=== PATIENT | female | born 1940 | race Caucasian/White ===

== ENCOUNTER 2016-07-24 10:04 | Inpatient (IN) | payer MEDICARE, MEDICAID ==
[~2016-07-24] VITALS: Ht 165.1 cm; Wt 104.0 kg
[~2016-07-24 10:04] MED LIST: ALLOPURINOL100 MG PO; AMIODARONE200 MG PO; CALCIUM600 M2 PO; CARTIA XT300 MG/24 PO; CEPHALEXIN500 MG PO; CHLORASEPTIC SO1 LOZ PO; CIPROFLOXACN500 MG PO; COMPAZINE5 MG/TAB PO; COUMADIN2 MG PO; COUMADIN2.5 MG PO; COUMADIN4 MG PO; COUMADIN5 MG PO; DUONEB IN; FLEXERIL PO; KEFLEX500 M1 PO; KLOR-CON M2020 MEQ PO; LASIX 20 MG20 MG/TAB PO; LASIX 40 MG TAB40 MG PO; LEVOTHYROXIN50 MCG PO; LISINOPRIL5 MG PO; LOPRESSOR25 M1 PO; MAGNESIUM296 ML/BTL PO; MEDDOSEPAK PO; MET12.5TAB PO; METFORMIN500 MG PO; METOCLOPRAM10 MG PO; METOPROL TAR25 MG PO; MUCINEX600 MG PO; MYLANTA1 ML PO; NORCO1 TA1 PO; PERCOCET 5/325M1 TAB PO; PRAVACHOL20 MG PO; PRAVASTATIN20 MG PO; PREDNISONE20 MG PO; PREDNISONE50 MG PO; PROAIR HFA IN; PROBIOTI1 OR; PROTONIX40 M2 PO; ROBITUSSIN AC10 ML PO; SYMBICORT1 AE1 IN; TAZTIA X1 PO; TRAMADOL HCL50 MG PO; TYLENOL325 MG PO; ULTRAM50 M1 PO; VANTIN100 MG PO; WARFARIN5 MG PO; XALATAN 0.005%2.5 ML OU; XANAX0.25 MG PO; ZPAK PO
--- NOTE | 2016-07-24 10:22 | NUR ---
PT TO ROOM PER W/C
[2016-07-24 11:07] LABS: HEMATOCRIT 43.3 % (37.0-47.0); HEMOGLOBIN 14.1 g/dl (12.0-16.0); IMMATURE GRANULOCYTES 0.4 % (0.0-1.0); MEAN CELL VOLUME 90.8 fL CALC (80.0-100.0); MEAN CORPUSCULAR HGB 29.6 pG CALC (26.0-32.0); MEAN CORPUSCULAR HGB CONC 32.6 g/L CALC (32.0-36.0); NEUT# 7.25 thou/uL (2.00-7.15); RED BLOOD COUNT 4.77 mill/uL (4.20-5.60); RED CELL DISTRI WIDTH 13.9 % (11.5-15.5)
[2016-07-24 11:12] LABS: INTERNATIONAL NORMALIZED RATIO 3.1 RATIO (0.7-1.3); PROTHROMBIN TIME 36.6 SECONDS (9.0-12.5)
[2016-07-24 11:15] LABS: ALBUMIN 3.8 g/dL (3.2-5.0); ALKALINE PHOSPHATASE 87 u/l (38-126); ANION GAP 15 (6-22 (CALC)); BILIRUBIN, TOTAL 0.9 mg/dL (0.0-1.4); BUN 16 mg/dL (8-23); BUN/CREATININE RATIO 18 (12-20 (CALC)); CALCIUM 9.5 mg/dL (8.4-10.2); CARBON DIOXIDE 29 mmol/l (22-30); CHLORIDE 100 mmol/l (95-108); CREATININE 0.9 mg/dL (0.5-1.0); ETHYL ALCOHOL 0 mg/dl (0-30); GFR > 60 ML/MIN (>=60 (CALC)); GFR FOR AFR.AMER. > 60 ML/MIN (>=60 (CALC)); GLUCOSE 158 mg/dL (82-115); SGOT/AST 28 u/l (9-36); SGPT/ALT 42 u/l (11-66); SODIUM 140 mmol/l (137-146); TOTAL PROTEIN 6.5 g/dL (6.3-8.2)
[2016-07-24 11:27] LABS: MYOGLOBIN 44 ng/mL (0 - 62)
--- NOTE | 2016-07-24 11:30 | NUR ---
PATIENT RESTING AWAITING LAB AND RADIOLOGY RESULTS. PATIENT DENIES ANY AIN AT THIS TIME
--- NOTE | 2016-07-24 12:30 | NUR ---
PATIENT RESTING AWAITING LAB AND RADIOLOGY RESULTS. PATIENT DENIES ANY PAIN AT THIS TIME
[2016-07-24 12:31] LABS: URINE BILIRUBIN - DIPSTICK NEGATIVE (NEGATIVE); URINE BLOOD DIPSTICK NEGATIVE (NEGATIVE); URINE COLOR YELLOW; URINE GLUCOSE - DIPSTICK NEGATIVE (NEGATIVE); URINE KETONE NEGATIVE (NEGATIVE); URINE LEUK ESTERASE TRACE (NEGATIVE); URINE PH 5.5 (4.5-8.0); URINE PROTEIN - DIPSTICK NEGATIVE (NEG-TRACE); URINE UROBILINOGEN - DIPSTICK 0.2 E.U./dL (0.2)
[2016-07-24 12:33] LABS: URINE CLARITY HAZY; URINE NITRITE - DIPSTICK POSITIVE (Negative)
[2016-07-24 12:34] LABS: URINE BACTERIA MANY hpf; URINE EPITHELIAL CELLS FEW EPI/hpf (0-FEW)
--- NOTE | 2016-07-24 13:30 | NUR ---
PATIENT RESTING AWAITING RESULTS FROM MD PATIENT DENIES ANY PAIN AT THIS TIME
--- NOTE | 2016-07-24 14:51 | NUR ---
PATIENT RESTING AWAITING ROOM ASSIGNMENT DENIES ANY PAIN AT THIS TIME
--- NOTE | 2016-07-24 14:57 | NUR ---
REPORT CALLED TO THE FLOOR AND PATIENT TRANSPORTED
--- NOTE | 2016-07-24 15:01 | NUR ---
PATIENT DOES NOT REMEMBER HER MEDICATIONS THAT SHE TAKES OR WHEN SHE LAST TOOK HER MEDICATIONS
--- NOTE | 2016-07-24 15:05 | NUR ---
PT ARRIVED TO FLOOR AT THIS TIME ACCOMPANIED BY AURE GILMAN; PT AMB TO SCALE AND BATHROOM WITH STEADY GAIT NOTED; PT ORIENTED TO ROOM AND CALL LIGHT SYSTEM; ASSESSMENT COMPLETED AT THIS TIME; VSS; PT DENIES ANY NEEDS AT THIS TIME; TELE IN PLACE; FALL PRECAUTIONS IN PLACE; PT ENCOURAGED TO CALL FOR ANY ASSISTANCE NEEDED; CALL LIGHT WITHIN REACH; WILL CONTINUE TO MONITOR
[2016-07-24 15:10] VITALS: BP 124/59
--- NOTE | 2016-07-24 17:30 | NUR ---
PT RESTING IN BED; NO S/S OF DISTRESS NOTED; IVF INFUSING AT PRESCRIBED RATE; PT MEDICATED WITH SCHEDULED ULTRAM; PT C/O PAIN IN LOWER EXTREMITIES AND HEAD; PT DENIES ANY OTHER NEEDS AT THIS TIME; CALL LIGHT WITHIN REACH
[2016-07-24 19:05] VITALS: BP 109/62
--- NOTE | 2016-07-24 20:20 | NUR ---
PT RESTING IN SEMI FOWLERS POSITION;PT DENIES ANY PAIN OR DISCOMFORTS;O2 ON @ 2 LITERS VIA NC;PURSED LIP BREATHING TECHNIQUE EDUCATED;IV SITE TO LEFT WRIST INFUSING WELL;TELE MONITOR IN PLACE READING AFIB 97;HOME CPAP AT BEDSIDE;ASSESSMENT COMPLETED;SKIN INTACT;PT DENIES ANY OTHER NEEDS AT THIS TIME;SAFETY PRECAUTIONS REINFORCED;COMMODE AT BEDSIDE;BED IN LOWEST POSITION WITH CALL LIGHT IN REACH;WILL CONTINUE TO MONITOR
[2016-07-25 00:10] VITALS: BP 116/62
--- NOTE | 2016-07-25 00:15 | NUR ---
PT RESTING IN SEMI FOWLERS POSITION;VS OBTAINED AND SCHEDULED MEDICATION ADMINISTERED AT THIS TIME;O2 ON @ 2 LITERS;PT DENIES ANY OTHER NEEDS AT THIS TIME;COMMODE AT BEDSIDE;BED IN LOWEST POSITION WITH CALL IN REACH;WILL CONTINUE TO MONITOR
--- NOTE | 2016-07-25 04:20 | NUR ---
PT APPEARS TO BE SLEEPING IN SEMI FOWLERS POSITION;NO S/S OF DISTRESS NOTED;RESPIRATIONS EVEN AND UNLABORED ON 02 @ 2;COMMODE AT BEDSIDE;BED IN LOWEST POSITION WITH CALL LIGHT IN REACH;WILL CONTINUE TO MONITOR
[2016-07-25 04:50] VITALS: BP 121/78
[2016-07-25 05:27] LABS: INTERNATIONAL NORMALIZED RATIO 2.4 RATIO (0.7-1.3); PROTHROMBIN TIME 28.5 SECONDS (9.0-12.5)
--- NOTE | 2016-07-25 07:00 | NUR ---
SHIFT CHANGE REPORT FROM ELKE CHOU SLEEPING AT THIS TIME, O2 @ 2L VIA NC IN PLACE, BREATHING EVEN AND NON-LABORED, NO VISIBLE SIGN DISCOMFORT, CALL SMART IN REACH.
[2016-07-25 07:35] VITALS: BP 117/51
[2016-07-25 11:23] VITALS: BP 111/65
--- NOTE | 2016-07-25 11:54 | NUR ---
RESTING IN BED, UP TO BR PERIODICALLY, ALL NEEDS ADDRESSED, CALL SMART IN REACH.
[2016-07-25 15:45] VITALS: BP 113/71
--- NOTE | 2016-07-25 16:08 | NUR ---
RESTING IN BED, ALL NEEDS ADDRESSED, CALL SMART IN REACH.
--- NOTE | 2016-07-25 20:00 | NUR ---
PATIENT RESTING IN BED AT THIS TIME WITH HOB ELEVATED AND O2 VIA NASAL CANNULA IN PLACE. PATIENT WITH IV SITE TO LEFT WRIST WITH IVF NS PATENT AND INFUSING AT 125CC/HR. TELE MONITOR IN PLACE. PATIENT WITH NO COMPLAINTS AT THIS TIME. SAFETY PRECAUTIONS REINFORCED. CALL LIGHT IN REACH. WILL CONT TO MONITOR.
[2016-07-25 20:15] VITALS: BP 134/66
--- NOTE | 2016-07-26 | NUR ---
PATIENT RESTING IN BED WITH C-PAP IN PLACE. PATIENT MEDICATED WITH SCHEDULED ULTRAM 50MG PO FOR LEFT LEG PAIN. CALL LIGHT IN REACH. WILL CONT TO MONITOR.
[2016-07-26 00:25] VITALS: BP 123/70
--- NOTE | 2016-07-26 04:00 | NUR ---
PATIENT APPEARS SLEEPING WITH EYES CLOSED AND C-PAP IN PLACE. CALL LIGHT IN REACH. WILL CONT TO MONITOR.
[2016-07-26 04:50] VITALS: BP 139/77
[2016-07-26 06:06] LABS: HEMATOCRIT 38.1 % (37.0-47.0); HEMOGLOBIN 12.2 g/dl (12.0-16.0); IMMATURE GRANULOCYTES 0.2 % (0.0-1.0); MEAN CELL VOLUME 92.7 fL CALC (80.0-100.0); MEAN CORPUSCULAR HGB 29.7 pG CALC (26.0-32.0); NEUT# 3.33 thou/uL (2.00-7.15); RED BLOOD COUNT 4.11 mill/uL (4.20-5.60); RED CELL DISTRI WIDTH 13.8 % (11.5-15.5)
[2016-07-26 06:33] LABS: ANION GAP 13 (6-22 (CALC)); BUN 16 mg/dL (8-23); BUN/CREATININE RATIO 20 (12-20 (CALC)); CALCIUM 8.7 mg/dL (8.4-10.2); CARBON DIOXIDE 27 mmol/l (22-30); CHLORIDE 103 mmol/l (95-108); CREATININE 0.8 mg/dL (0.5-1.0); GFR > 60 ML/MIN (>=60 (CALC)); GFR FOR AFR.AMER. > 60 ML/MIN (>=60 (CALC)); GLUCOSE 85 mg/dL (82-115); POTASSIUM 3.8 mmol/l (3.5-5.1); SODIUM 139 mmol/l (137-146)
--- NOTE | 2016-07-26 07:00 | NUR ---
SHIFT CHANGE REPORT FROM JARON, PT AWAKE ALERT AND ORIENTED RESTING IN BED, STATES SHE FEELS BETTER THIS AM, NO NEW COMPLAINS, IVF INFUSING, CALL SMART IN REACH.
[2016-07-26 07:48] VITALS: BP 126/73
[2016-07-26 09:43] LABS: PROTHROMBIN TIME 22.6 SECONDS (9.0-12.5)
[2016-07-26] MEDS ORDERED: CIPROFLOXACN500 MG PO (11:16)
[2016-07-26] MEDS ORDERED: Levaquin PO (11:19)
[2016-07-26] MEDS ORDERED: VANTIN200 M1 PO (11:26)
[2016-07-26 11:43] VITALS: BP 140/84
[2016-07-26] MEDS ORDERED: BACTRIM DS1 TAB PO (11:48)
--- NOTE | 2016-07-26 12:31 | NUR ---
Discharge instructions given. Patient verbalizes understanding of same. Discharged in fair condition via Wheelchair to Home with family. All belongings sent with pt.
--- NOTE | 2016-07-26 14:39 | NUR ---
Phone Call Follow Up Called pateint to discuss the following discharge insctructions: 1. Pt should fill script for Bactrim and start medication as soon as possible 2. Bactrim might raise her INR, so she should reduce her Warfarin dose schedule for 1 week (to 4mg daily) 3. Pt should get her INR checked 07/28/16 to ensure INR is within range Pt understood trauma counsellor points and had no further questions.
== END 2016-07-26 12:35 | disposition home or self-care (01) | DRG 191 ==
LOC: ENPENDDIS → ED 10:04 → ED-I 14:26 → MS2 14:27 → ED 14:27 → MS2 21:30
PROVIDERS: Emergency Medicine; Internal Medicine; ADMIT Internal Medicine; ATTEND Internal Medicine
DX: J44.0 Chronic obstructive pulmonary disease with (acute) lower respiratory infection (principal); N39.0 Urinary tract infection, site not specified; I48.91 Unspecified atrial fibrillation; B96.89 Other specified bacterial agents as the cause of diseases classified elsewhere; I10 Essential (primary) hypertension; E11.9 Type 2 diabetes mellitus without complications; F32.9 Major depressive disorder, single episode, unspecified; J20.9 Acute bronchitis, unspecified; I25.10 Atherosclerotic heart disease of native coronary artery without angina pectoris; G47.33 Obstructive sleep apnea (adult) (pediatric); M10.9 Gout, unspecified; Z79.01 Long term (current) use of anticoagulants